=== PATIENT | male | born 1985 | race African-American/Black ===

== ENCOUNTER 2019-03-04 09:39 | Inpatient (IN) | payer OTHER, SELFPAY ==
[~2019-03-04 09:39] MED LIST: Dexamethasone 20 MG/5 ML VIAL ONE; Glycopyrrolate 0.2 MG/ML 5 ML SYRINGE ONE; Ketorolac Tromethamine 30 MG/ML VIAL ONE; Lidocaine 1% PF 5 ML VIAL ONE; Metoclopramide HCl 10 MG/2 ML VIAL ONE; Ondansetron PF 4 MG/2 ML Vial ONE; PROPOFOL 200 MG/20 ML VIAL ONE; Rocuronium Bromide 10 MG/ML (10ML VIAL) ONE; Succinylcholine Chloride 20 MG/ML 10 ml SYRINGE FS ONE
[2019-03-04] MEDS ORDERED: Adacel (T-DAP) 0.5 ML SYRINGE ONE (09:43)
[2019-03-04] MEDS ORDERED: ISOVUE-370 76%-LOCM 1 ML ONE (09:46)
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
[2019-03-04 10:19] LABS: ALT (SGPT) 18 U/L (8-55); AST (SGOT) 26 U/L (5-34); Alkaline Phosphatase 65 U/L (40-150); Anion Gap 15 mmol/L (10-20); BUN (Urea Nitrogen) 8 mg/dL (8.9-20.6); Bilirubin, Total 0.5 mg/dL (0.2-1.2); CK (CPK) 378 U/L (30-200); Calc. Creatinine Clearance 0 mL/min (70-130); Calcium 9.8 mg/dL (7.8-10.44); Carbon Dioxide 19 mmol/L (22-29); Chloride 107 mmol/L (98-107); Estimated GFR-MDRD Greater than 90; Globulin 2.7 g/dL (2.4-3.5); Glucose 174 mg/dL (70-105); Potassium 3.8 mmol/L (3.5-5.1); Protein, Total 6.7 g/dL (6.0-8.3); Sodium 137 mmol/L (136-145)
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
[2019-03-04] MEDS ORDERED: HYDROmorphone 0.5 MG/0.5 ML SYRINGE ONE (10:25)
[2019-03-04] MEDS ORDERED: Lidocaine 1% (PF) 30 ML VIAL ONE (10:25)
[2019-03-04] MEDS ORDERED: Lidocaine 1% w/Epinephrine 1:100K 20 ML VIAL ONE (10:25)
[2019-03-04 10:31] LABS: #Lymphocytes 1.6 thou/uL (1.20-3.40); #Monocytes 0.8 thou/uL (0.11-0.59); #Neutrophils 11.6 thou/uL (1.40-6.50); %Basophils 0.2 % (0.0-1.0); %Eosinophils 0.3 % (0.0-10.0); %Lymphocytes 11.6 % (21.0-51.0); %Monocytes 5.8 % (0.0-10.0); Hemoglobin 12.7 g/dL (14.0-18.0); Mean Corpuscular HGB CONC 34.5 g/dL (32.0-36.0); Mean Corpuscular Hemoglobin 30.1 pg (27.0-31.0); Mean Corpuscular Volume 87.2 fL (78.0-98.0); Mean Platelet Volume 6.6 fL (7.4-10.4); Platelet Count 197 thou/uL (130-400); RBC Distribution Width 11.6 % (11.5-14.5); Red Blood Cell (RBC) Count 4.23 mill/uL (4.70-6.10); White Blood Cell (WBC) Count 14.1 thou/uL (4.8-10.8)
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
[2019-03-04 10:40] LABS: PTT 24.9 SEC (22.9-36.1); Prothrombin Time 16.2 SEC (12.0-14.7)
[2019-03-04 10:41] LABS: INR-International Normal Ratio 1.3
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
[2019-03-04] MEDS ORDERED: Morphine 4 MG/ML VIAL SLOW IVP PRN (10:50)
[2019-03-04] MEDS ORDERED: Dextrose 5% in Water 1,000 ML IV PRN (10:50)
[2019-03-04] MEDS ORDERED: Promethazine HCl 25 MG/ML VIAL IM PRN ×2 (10:50→15:09)
[2019-03-04] MEDS ORDERED: hydrALAZINE 20 MG/ML VIAL SLOW IVP PRN (10:50)
[2019-03-04] MEDS ORDERED: Dextrose 50% Abboject 50 ML SYRINGE SLOW IVP PRN (10:50)
[2019-03-04] MEDS ORDERED: Ondansetron PF 4 MG/2 ML Vial IVP PRN (10:50)
[2019-03-04] MEDS ORDERED: traMADol HCl 50 MG TAB PO PRN ×2 (10:52)
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
[2019-03-04] MEDS ORDERED: Acetaminophen 1,000 MG in Premix Bag 1 BAG IVPB SCH (12:00)
[2019-03-04 12:34] LABS: Acetaminophen Less than 6.0 mcg/mL (10.0-30.0); Alcohol Less than 10 mg/dL (Less than 10); Salicylate Less than 8.0 mg/dL (15.0-30.0)
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
[2019-03-04] MEDS ORDERED: Fentanyl 100 MCG/2 ML VIAL ONE ×3 (12:44→15:06)
[2019-03-04] MEDS ORDERED: HYDROmorphone 2 MG/ML VIAL ONE ×3 (13:25→15:56)
[2019-03-04] MEDS ORDERED: Bacitracin Zinc Ointment 30 gm TUBE ONE (14:38)
[2019-03-04] MEDS ORDERED: Morphine 4 MG/ML VIAL ONE (15:06)
[2019-03-04] MEDS ORDERED: Promethazine HCl 25 MG/ML VIAL SLOW IVP PRN (15:09)
[2019-03-04] MEDS ORDERED: HYDROmorphone 2 MG/ML VIAL SLOW IVP PRN (15:09)
[2019-03-04] MEDS ORDERED: Ondansetron HCl/PF 4 MG/2 ML Vial IVP PRN (15:09)
[2019-03-04] MEDS ORDERED: Meperidine HCl/PF 25 MG/ML VIAL SLOW IVP PRN (15:09)
[2019-03-04] MEDS ORDERED: Morphine Sulfate 2 MG/ML SYRINGE SLOW IVP PRN (15:09)
[2019-03-04] MEDS ORDERED: PACU-Morphine 4MG/ML VIAL SLOW IVP PRN (15:09)
[2019-03-04 17:27] LABS: Lactic Acid 1.1 mmol/L (0.5-2.2)
[2019-03-04] MEDS ORDERED: Acetaminophen 500 MG TAB PO SCH (18:00)
[2019-03-04] MEDS: Sodium Chloride 0.9% 1,000 ML IV SCH ×2 (18:51→21:00)
[2019-03-04] MEDS: Gabapentin 300 MG CAP PO SCH ×2 (18:51→20:57)
[2019-03-04] MEDS: Ibuprofen 800 MG TAB PO SCH ×2 (18:51→21:09)
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
[2019-03-04] MEDS ORDERED: HYDROcodone/Acetaminophen 5/325 mg Tablet PO PRN (20:09)
[2019-03-04] MEDS: Senokot S 8.6-50 MG TAB PO SCH (20:57)
[2019-03-04] MEDS: Famotidine 20 MG TAB PO SCH (20:57)
[2019-03-04] MEDS: HYDROcodone/Acetaminophen 5/325 mg Tablet PO SCH (20:58)
[2019-03-04] MEDS: CEFAZOLIN 2 GM in Premix Bag 1 BAG IVPB SCH (21:09)
[2019-03-05] MEDS: Acetaminophen 325 MG TAB PO SCH ×2 (00:37→05:42)
[2019-03-05] MEDS: HYDROcodone/Acetaminophen 5/325 mg Tablet PO SCH ×3 (01:04→10:36)
[2019-03-05 05:41] LABS: #Lymphocytes 1.8 thou/uL (1.20-3.40); #Monocytes 0.8 thou/uL (0.11-0.59); #Neutrophils 7.9 thou/uL (1.40-6.50); %Eosinophils 0.1 % (0.0-10.0); %Lymphocytes 16.9 % (21.0-51.0); %Neutrophils 75.1 % (42.0-75.0); Hemoglobin 12.3 g/dL (14.0-18.0); Mean Corpuscular HGB CONC 34.1 g/dL (32.0-36.0); Mean Corpuscular Hemoglobin 30.3 pg (27.0-31.0); Mean Corpuscular Volume 88.7 fL (78.0-98.0); Mean Platelet Volume 6.8 fL (7.4-10.4); Platelet Count 206 thou/uL (130-400); RBC Distribution Width 11.8 % (11.5-14.5); Red Blood Cell (RBC) Count 4.07 mill/uL (4.70-6.10); White Blood Cell (WBC) Count 10.5 thou/uL (4.8-10.8)
[2019-03-05] MEDS: Ibuprofen 800 MG TAB PO SCH ×3 (05:42→21:58)
[2019-03-05] MEDS: CEFAZOLIN 2 GM in Premix Bag 1 BAG IVPB SCH ×2 (05:43→15:21)
[2019-03-05] MEDS: Sodium Chloride 0.9% 1,000 ML IV SCH ×4 (05:43→23:39)
[2019-03-05 06:06] LABS: Anion Gap 12 mmol/L (10-20); BUN (Urea Nitrogen) 7 mg/dL (8.9-20.6); CK (CPK) 2581 U/L (30-200); Calc. Creatinine Clearance 0 mL/min (70-130); Calcium 8.6 mg/dL (7.8-10.44); Carbon Dioxide 24 mmol/L (22-29); Chloride 104 mmol/L (98-107); Estimated GFR-MDRD Greater than 90; Glucose 106 mg/dL (70-105); Magnesium 1.8 mg/dL (1.6-2.6); Phosphorus 3.5 mg/dL (2.3-4.7); Potassium 3.9 mmol/L (3.5-5.1); Sodium 136 mmol/L (136-145)
[2019-03-05] MEDS ORDERED: PHOS-NAK 1 PKT PACK PO SCH (07:30)
[2019-03-05] MEDS ORDERED: Magnesium 2 GM/50 ML 2 GM in Premix Bag 1 BAG IVPB SCH (07:30)
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
[2019-03-05] MEDS ORDERED: Enoxaparin Sodium 30 MG/0.3 ML SYRINGE SC SCH ×2 (10:00)
[2019-03-05] MEDS: Acetaminophen 500 MG TAB PO SCH ×3 (10:04→21:57)
[2019-03-05] MEDS: Senokot S 8.6-50 MG TAB PO SCH ×2 (10:04→21:05)
[2019-03-05] MEDS: Famotidine 20 MG TAB PO SCH ×2 (10:04→21:05)
[2019-03-05] MEDS: Gabapentin 300 MG CAP PO SCH ×3 (10:04→21:05)
[2019-03-05] MEDS: Polyethylene Glycol 3350 17 GM Packet PO SCH (10:04)
[2019-03-05] MEDS: traMADol HCl 50 MG TAB PO SCH ×2 (10:04→15:53)
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
[2019-03-05] MEDS: traMADol HCl 50 MG TAB PO PRN ×2 (12:27→18:38)
[2019-03-05] MEDS: Cyclobenzaprine 10 MG TAB PO PRN ×2 (12:29→21:06)
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
[2019-03-05] MEDS ORDERED: Cyclobenzaprine 10 MG TAB PO SCH (15:00)
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
[2019-03-05] MEDS: Enoxaparin Sodium 30 MG/0.3 ML SYRINGE SC SCH (21:04)
[2019-03-05] MEDS: Triple Antibiotic Ointment 30 GM TUBE TOP SCH (21:05)
[2019-03-05] MEDS: Silver Sulfadiazine 1% Cream 50 GM TUBE TP SCH (21:24)
[2019-03-05] MEDS ORDERED: Morphine 4 MG/ML VIAL SLOW IVP PRN (21:51)
[2019-03-05] MEDS ORDERED: traMADol HCl 50 MG TAB PO SCH (22:00)
[2019-03-06] MEDS ORDERED: Acetaminophen 325 MG TAB PO SCH (00:15)
[2019-03-06] MEDS: HYDROcodone/Acetaminophen 5/325 mg Tablet PO SCH ×6 (00:23→21:42)
[2019-03-06] MEDS: Ibuprofen 800 MG TAB PO SCH ×3 (05:11→21:42)
[2019-03-06] MEDS: Acetaminophen 325 MG TAB PO SCH ×2 (05:11→12:45)
[2019-03-06 05:29] LABS: #Eosinphils 0.1 thou/uL (0.0-0.7); #Lymphocytes 3.7 thou/uL (1.20-3.40); #Monocytes 0.7 thou/uL (0.11-0.59); #Neutrophils 3.3 thou/uL (1.40-6.50); %Basophils 0.5 % (0.0-1.0); %Eosinophils 1.4 % (0.0-10.0); %Lymphocytes 47.1 % (21.0-51.0); %Monocytes 8.3 % (0.0-10.0); %Neutrophils 42.7 % (42.0-75.0); Hemoglobin 12.6 g/dL (14.0-18.0); Mean Corpuscular Hemoglobin 30.7 pg (27.0-31.0); Mean Corpuscular Volume 90.4 fL (78.0-98.0); Platelet Count 186 thou/uL (130-400); RBC Distribution Width 11.9 % (11.5-14.5); White Blood Cell (WBC) Count 7.8 thou/uL (4.8-10.8)
[2019-03-06 05:55] LABS: Anion Gap 11 mmol/L (10-20); BUN (Urea Nitrogen) 8 mg/dL (8.9-20.6); CK (CPK) 2656 U/L (30-200); Calc. Creatinine Clearance 0 mL/min (70-130); Calcium 8.5 mg/dL (7.8-10.44); Carbon Dioxide 26 mmol/L (22-29); Chloride 107 mmol/L (98-107); Estimated GFR-MDRD Greater than 90; Glucose 87 mg/dL (70-105); Magnesium 2.1 mg/dL (1.6-2.6); Phosphorus 3.1 mg/dL (2.3-4.7); Potassium 3.7 mmol/L (3.5-5.1); Sodium 140 mmol/L (136-145)
[2019-03-06] MEDS: Sodium Chloride 0.9% 1,000 ML IV SCH ×2 (07:47→17:57)
[2019-03-06] MEDS: Polyethylene Glycol 3350 17 GM Packet PO SCH (07:52)
[2019-03-06] MEDS: Enoxaparin Sodium 30 MG/0.3 ML SYRINGE SC SCH ×2 (07:52→21:45)
[2019-03-06] MEDS: Senokot S 8.6-50 MG TAB PO SCH ×2 (07:52→21:44)
[2019-03-06] MEDS: Famotidine 20 MG TAB PO SCH (07:52)
[2019-03-06] MEDS: Gabapentin 300 MG CAP PO SCH ×3 (07:52→21:44)
[2019-03-06] MEDS: Silver Sulfadiazine 1% Cream 50 GM TUBE TP SCH ×2 (09:30→21:47)
[2019-03-06] MEDS: Triple Antibiotic Ointment 30 GM TUBE TOP SCH ×2 (09:30→21:47)
[2019-03-06 09:48] VITALS: BMI 26.6
[2019-03-06] MEDS: Cyclobenzaprine 10 MG TAB PO PRN ×2 (10:11→17:53)
[2019-03-06] MEDS: Dexamethasone 4 MG TAB PO SCH ×2 (10:28→18:18)
[2019-03-06] MEDS: HYDROcodone/Acetaminophen 5/325 mg Tablet PO PRN (14:57)
[2019-03-06] MEDS: Acetaminophen 500 MG TAB PO SCH (18:23)
[2019-03-07] MEDS: Acetaminophen 500 MG TAB PO SCH ×5 (01:00→23:11)
[2019-03-07] MEDS: HYDROcodone/Acetaminophen 5/325 mg Tablet PO SCH ×5 (01:00→17:01)
[2019-03-07] MEDS: Sodium Chloride 0.9% 1,000 ML IV SCH ×3 (01:03→23:12)
[2019-03-07] MEDS: Dexamethasone 4 MG TAB PO SCH (01:04)
[2019-03-07] MEDS: Ibuprofen 800 MG TAB PO SCH ×3 (05:40→21:17)
[2019-03-07 06:50] LABS: Anion Gap 12 mmol/L (10-20); BUN (Urea Nitrogen) 9 mg/dL (8.9-20.6); CK (CPK) 3251 U/L (30-200); Calc. Creatinine Clearance 156 mL/min (70-130); Calcium 9.6 mg/dL (7.8-10.44); Carbon Dioxide 24 mmol/L (22-29); Chloride 103 mmol/L (98-107); Estimated GFR-MDRD Greater than 90; Glucose 112 mg/dL (70-105); Potassium 4.2 mmol/L (3.5-5.1); Sodium 135 mmol/L (136-145)
[2019-03-07] MEDS: Enoxaparin Sodium 30 MG/0.3 ML SYRINGE SC SCH ×2 (09:39→21:17)
[2019-03-07] MEDS: Gabapentin 300 MG CAP PO SCH ×3 (09:40→21:17)
[2019-03-07] MEDS: Senokot S 8.6-50 MG TAB PO SCH ×2 (09:41→21:17)
[2019-03-07] MEDS: Polyethylene Glycol 3350 17 GM Packet PO SCH (09:41)
[2019-03-07] MEDS: Silver Sulfadiazine 1% Cream 50 GM TUBE TP SCH ×2 (09:42→21:17)
[2019-03-07] MEDS: Triple Antibiotic Ointment 30 GM TUBE TOP SCH ×2 (09:42→21:17)
[2019-03-07] MEDS: HYDROcodone/Acetaminophen 5/325 mg Tablet PO PRN (11:58)
[2019-03-07] MEDS ORDERED: Sodium Bicarbonate 150 MEQ in Dextrose 5% in Water 1,000 ML IV SCH (13:15)
[2019-03-07] MEDS ORDERED: Cyclobenzaprine 10 MG TAB PO PRN (16:10)
[2019-03-07] MEDS: traMADol HCl 50 MG TAB PO SCH ×2 (18:10→23:11)
[2019-03-08] MEDS: Acetaminophen 500 MG TAB PO SCH ×2 (05:37→12:18)
[2019-03-08] MEDS: traMADol HCl 50 MG TAB PO SCH ×2 (05:37→11:59)
[2019-03-08] MEDS: Ibuprofen 800 MG TAB PO SCH ×3 (05:37→21:08)
[2019-03-08] MEDS: HYDROcodone/Acetaminophen 5/325 mg Tablet PO PRN ×4 (06:19→22:26)
[2019-03-08] MEDS: Sodium Chloride 0.9% 1,000 ML IV SCH (07:30)
[2019-03-08] MEDS: Gabapentin 300 MG CAP PO SCH ×3 (09:23→21:08)
[2019-03-08] MEDS: Enoxaparin Sodium 30 MG/0.3 ML SYRINGE SC SCH ×2 (09:23→21:08)
[2019-03-08] MEDS: Triple Antibiotic Ointment 30 GM TUBE TOP SCH ×2 (09:23→21:06)
[2019-03-08] MEDS: Silver Sulfadiazine 1% Cream 50 GM TUBE TP SCH ×2 (09:24→21:09)
[2019-03-08] MEDS: Senokot S 8.6-50 MG TAB PO SCH ×2 (09:24→21:09)
[2019-03-08] MEDS: Polyethylene Glycol 3350 17 GM Packet PO SCH (09:24)
[2019-03-08 13:02] LABS: Anion Gap 13 mmol/L (10-20); BUN (Urea Nitrogen) 7 mg/dL (8.9-20.6); Calc. Creatinine Clearance 135 mL/min (70-130); Calcium 9.7 mg/dL (7.8-10.44); Carbon Dioxide 28 mmol/L (22-29); Chloride 102 mmol/L (98-107); Estimated GFR-MDRD Greater than 90; Glucose 87 mg/dL (70-105); Potassium 3.3 mmol/L (3.5-5.1); Sodium 140 mmol/L (136-145)
[2019-03-08 13:14] LABS: CK (CPK) 4481 U/L (30-200)
[2019-03-09] MEDS: HYDROcodone/Acetaminophen 5/325 mg Tablet PO PRN ×4 (04:14→13:14)
[2019-03-09 05:47] LABS: Anion Gap 13 mmol/L (10-20); BUN (Urea Nitrogen) 11 mg/dL (8.9-20.6); CK (CPK) 2938 U/L (30-200); Calc. Creatinine Clearance 134 mL/min (70-130); Calcium 9.5 mg/dL (7.8-10.44); Carbon Dioxide 29 mmol/L (22-29); Chloride 101 mmol/L (98-107); Estimated GFR-MDRD Greater than 90; Glucose 91 mg/dL (70-105); Potassium 3.6 mmol/L (3.5-5.1); Sodium 139 mmol/L (136-145)
[2019-03-09] MEDS: Ibuprofen 800 MG TAB PO SCH ×2 (06:26→14:12)
[2019-03-09] MEDS: Gabapentin 300 MG CAP PO SCH ×2 (08:01→14:12)
[2019-03-09] MEDS: Enoxaparin Sodium 30 MG/0.3 ML SYRINGE SC SCH (08:01)
[2019-03-09] MEDS: Polyethylene Glycol 3350 17 GM Packet PO SCH (08:02)
[2019-03-09] MEDS: Silver Sulfadiazine 1% Cream 50 GM TUBE TP SCH (08:02)
[2019-03-09] MEDS: Senokot S 8.6-50 MG TAB PO SCH (08:02)
[2019-03-09] MEDS: Triple Antibiotic Ointment 30 GM TUBE TOP SCH (10:15)
[2019-03-09 11:50] VITALS: TEMP 98.3
[2019-03-09 15:27] VITALS: BP 111/73
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
== END 2019-03-09 16:50 | disposition home or self-care (01) | DRG 959 ==
LOC: ERS 09:39 → SDC/OP 12:21 → SURG A 16:31
PROVIDERS: ADMIT Surgery; ATTEND Surgery
PROC: 0JBH0ZZ Excision of Left Lower Arm Subcutaneous Tissue and Fascia, Open Approach (ICD-10-PCS; principal; 2019-03-04)
DX: S51.012A Laceration without foreign body of left elbow, initial encounter (principal); T79.6XXA Traumatic ischemia of muscle, initial encounter; S06.2X0A Diffuse traumatic brain injury without loss of consciousness, initial encounter; T24.002A Burn of unspecified degree of unspecified site of left lower limb, except ankle and foot, initial encounter; T22.022A Burn of unspecified degree of left elbow, initial encounter; T31.0 Burns involving less than 10% of body surface; T24.001A Burn of unspecified degree of unspecified site of right lower limb, except ankle and foot, initial encounter; S40.012A Contusion of left shoulder, initial encounter; R40.2413 Glasgow coma scale score 13-15, at hospital admission; V68.5XXA Driver of heavy transport vehicle injured in noncollision transport accident in traffic accident, initial encounter
CPT/HCPCS: 36415; 70450; 71045; 71260; 72125; 72170; 74177; 80048; 80053; 80307; 82550; 83605; 83735; 84100; 85025; 85610; 85730; 86850; 86900; 86901; 90471; 90715; 96361; 96374; 96375; G0390; J0690; J1170; J1650; J2001; J2270; J3010; J3475; J7070; J8540; Q9966